=== PATIENT | female | born 1935 | race Caucasian/White ===

== ENCOUNTER 2017-03-23 08:16 | Emergency (ER) | payer OTHER ==
[~2017-03-23] VITALS: Ht 149.9 cm; Wt 54.9 kg
[~2017-03-23 08:16] MED LIST: ACTONEL 150 MG; ALEN10; ALLERTEC PO; ASPI81CH PO; FLONASE ALLERG9.9 ML; LISI5 PO; LOPE2C PO; ROFE25; VITAMIN B PO; [UNRECOGNIZED DRUG - MIXTURE] PO
[2017-03-23 09:50] LABS: BASOPHILS ABSOLUTE AUTO 0.03 K/mm3 (0.00-0.23); BASOPHILS PERCENT AUTO 0 % (0-2); EOSINOPHILS ABSOLUTE AUTO 0.21 K/mm3 (0.00-0.68); EOSINOPHILS PERCENT AUTO 3 % (0-6); Hematocrit 40.2 % (33.0-51.0); Hemoglobin 13.9 g/dL (11.5-16.0); IMMATURE GRAN ABSOLUTE AUTO 0.02 K/mm3 (0.00-0.10); IMMATURE GRAN PERCENT AUTO 0 % (0-1); LYMPHOCYTES ABSOLUTE AUTO 1.14 K/mm3 (0.84-5.20); LYMPHOCYTES PERCENT AUTO 15 % (21-46); MONOCYTES ABSOLUTE AUTO 0.78 K/mm3 (0.16-1.47); MONOCYTES PERCENT AUTO 10 % (4-13); Mean Corpuscular HGB 32.3 pg (26.0-34.0); Mean Corpuscular HGB Conc 34.6 g/dL (31.5-36.5); Mean Corpuscular Volume 93 fL (80-100); Mean Platelet Volume 11.6 fL (9.1-12.4); NEUTROPHILS ABSOLUTE AUTO 5.47 K/mm3 (1.96-9.15); NEUTROPHILS PERCENT AUTO 72 % (41-73); Platelet Count 230 K/mm3 (150-400); RDW Coefficient Variation 12.9 % (11.7-14.2); RDW Standard Deviation 44.7 fL (35.1-46.3); Red Blood Cell Count 4.31 M/mm3 (3.80-5.20); White Blood Cell Count 7.65 K/mm3 (4.00-11.30)
[2017-03-23 10:04] LABS: Alanine Aminotransfer (ALT/SGP 210 U/L (12-78); Albumin, Blood 3.3 g/dL (3.4-5.0); Albumin/Globulin Ratio 0.9 (0.8-1.8); Alk Phos 167 U/L (50-136); Anion Gap 8 mmol/L (6-16); Aspartate Aminotrans (AST/SGOT 104 U/L (12-37); Bilirubin, Total 1.7 mg/dL (0.1-1.0); Blood Urea Nitrogen 10 mg/dL (8-24); Bun/Creatinine Ratio 19.9 (12.0-20.0); CO2, Blood 28 mmol/L (21-32); Calcium, Blood 8.3 mg/dL (8.5-10.1); Chloride, Blood 105 mmol/L (98-108); Globulin, Blood 3.5 g/dL (2.2-4.0); Glomerular Filtration Rate >60 (60-); Glucose, Blood 181 mg/dL (70-99); Potassium, Blood 3.4 mmol/L (3.5-5.5); Sodium, Blood 141 mmol/L (136-145); Total Protein, Blood 6.8 g/dL (6.4-8.2)
[2017-03-23] MEDS ORDERED: CIME400 PO (13:06)
[2017-03-24 07:03] LABS: HCV Non Reactive (NR)
== END 2017-03-23 18:05 | disposition home or self-care (01) ==
LOC: ER 08:16
PROVIDERS: Emergency Medicine
DX: K83.1 Obstruction of bile duct (principal); R74.0 Nonspecific elevation of levels of transaminase and lactic acid dehydrogenase [LDH]; K44.9 Diaphragmatic hernia without obstruction or gangrene; Z88.6 Allergy status to analgesic agent; Z88.8 Allergy status to other drugs, medicaments and biological substances; Z79.899 Other long term (current) drug therapy; Z79.82 Long term (current) use of aspirin
CPT/HCPCS: 36415; 74177; 78226; 80053; 80074; 82272; 83690; 85025; 99284; A9537; Q9967

== ENCOUNTER → 2017-04-10 | Outpatient (CLI) | payer OTHER ==
[~2017-04-10] MED LIST changes: +CIME400 PO
== END | disposition home or self-care (01) ==
LOC: LAB SHORT 22:25 → OLS 22:25 → LAB FUT 03-30 11:00
DX: R19.7 Diarrhea, unspecified (principal); R63.4 Abnormal weight loss
CPT/HCPCS: 83520

== ENCOUNTER → 2017-04-12 | Outpatient (CLI) | payer OTHER ==
[2017-04-13 04:05] LABS: Fecal Collection Time 24 HR
== END ==
LOC: OLS 11:59
PROVIDERS: Internal Medicine
DX: R19.7 Diarrhea, unspecified (principal); R63.4 Abnormal weight loss
CPT/HCPCS: 82710

== ENCOUNTER → 2018-09-07 | Outpatient (CLI) | payer OTHER ==
[~2018-09-07] MED LIST changes: +ASPERCREME76.5 GM TOP; +BASAGLAR K100 UNIT/1 SC; +BIOTIN PO; +RISEDRONATE SO150 MG PO; +SELENIUM200 MC1 PO; +VITAMIN D-32000 UNIT PO
== END | disposition home or self-care (01) ==
LOC: LAB SHORT 10:00 → LAB 10:00
DX: R30.0 Dysuria (principal)
CPT/HCPCS: 87077; 87086; 87186

== ENCOUNTER 2018-12-13 07:48 | Day surgery (SDC) | payer OTHER ==
[~2018-12-13] VITALS: Ht 152.4 cm; Wt 51.0 kg
[~2018-12-13 07:48] MED LIST changes: -BASAGLAR K100 UNIT/1 SC; -BIOTIN PO; -RISEDRONATE SO150 MG PO
[2018-12-13] MEDS ORDERED: BIOTIN PO (08:11)
--- NOTE | 2018-12-13 13:07 | NUR ---
FAMILY W PT NOW, DR GONZALEZ TALKING TO PT/FAMILY ABOUT PLAN OF CARE AT THIS TIME, SEE RHYTHM STRIP RECORD FOR VS. PEDAL PULSES PALPABLE, R GROIN ACCESS SITE STABLE, LUNCH ORDERED
== END 2018-12-13 15:30 | disposition home or self-care (01) ==
LOC: MHTC 07:48
DX: I70.203 Unspecified atherosclerosis of native arteries of extremities, bilateral legs (principal)
CPT/HCPCS: 37225; 37228; 75625; 75716; 75774; 82947; 85347; 99152; 99153; C1714; C1725; C1769; C1884; C1887; C1894; C2623; J1644; J2250; J2405; J3010; J7030; Q9967

== ENCOUNTER 2018-12-27 08:19 | Day surgery (SDC) | payer OTHER ==
[~2018-12-27] VITALS: Ht 175.3 cm; Wt 50.9 kg
[~2018-12-27 08:19] MED LIST changes: +BIOTIN PO
[2018-12-27] MEDS ORDERED: BASAGLAR K100 UNIT/1 SC (11:27)
[2018-12-27] MEDS ORDERED: RISEDRONATE SO150 MG PO (11:28)
--- NOTE | 2018-12-27 13:03 | NUR ---
PT BACK TO RECOVERY ROOM VIA FELARJANINE AFTER PROCEDURE. AWAKE AND ALERT. DENIES PAIN OR DISCOMFORT. LEFT FEMORAL SITE C/D/I, TEGADERM CHG IN PLACE OVER SITE. PT INSTRUCTED TO REMAIN FLAT WITHOUT LIFTING HEAD FOR THE FIRST HOUR POST PROCEDURE.
--- NOTE | 2018-12-27 14:33 | NUR ---
PT REPOSITIONED FOR COMFORT. HOB RAISED 45 DEGREES. LEFT FEMORAL SITE REMAINS STABLE. DRESSING C/D/I NO ACTIVE BLEEDING, OOZING, OR PAIN NOTED. FAMILY PRESENT AT BEDSIDE. VSS.
--- NOTE | 2018-12-27 15:27 | NUR ---
PT AT 90 DEGREES EATING AND DRINKING WITH NO DIFFICULTIES. LEFT GROIN SITE STABLE. DRESSING C/D/I. FAMILY PRESENT TO DISCUSS DISCHARGE INFORMATION.
== END 2018-12-27 16:10 | disposition home or self-care (01) ==
LOC: MHTC 08:19
DX: E11.51 Type 2 diabetes mellitus with diabetic peripheral angiopathy without gangrene (principal); I70.201 Unspecified atherosclerosis of native arteries of extremities, right leg; I74.3 Embolism and thrombosis of arteries of the lower extremities; M19.90 Unspecified osteoarthritis, unspecified site; M54.9 Dorsalgia, unspecified; G89.29 Other chronic pain; Z88.6 Allergy status to analgesic agent; Z88.8 Allergy status to other drugs, medicaments and biological substances; Z79.899 Other long term (current) drug therapy; Z79.82 Long term (current) use of aspirin
CPT/HCPCS: 37224; 37228; 37232; 75716; 75774; 82947; 85347; 99152; 99153; C1725; C1760; C1769; C1887; C1894; C2623; J1644; J2250; J2997; J3010; J7030; J7042; Q9967

== ENCOUNTER 2019-02-25 15:46 | Emergency (ER) | payer OTHER ==
[~2019-02-25] VITALS: Ht 149.9 cm; Wt 50.8 kg
[~2019-02-25 15:46] MED LIST changes: +BASAGLAR K100 UNIT/1 SC; +RISEDRONATE SO150 MG PO
[2019-02-25] MEDS ORDERED: ONDA4ODT SL (18:51)
[2019-02-25] MEDS ORDERED: Roxicodone5 MG PO (18:51)
== END 2019-02-25 20:16 | disposition home or self-care (01) ==
LOC: ER 15:46
DX: S42.201A Unspecified fracture of upper end of right humerus, initial encounter for closed fracture (principal); Z79.899 Other long term (current) drug therapy; X58.XXXA Exposure to other specified factors, initial encounter
CPT/HCPCS: 29105; 64450; 73030; 73200; 96372-59; 99284-25; A9270; A9270-GY; J1170

== ENCOUNTER 2019-07-15 06:44 | Emergency (ER) | payer OTHER ==
[~2019-07-15] VITALS: Ht 152.4 cm; Wt 45.4 kg
[~2019-07-15 06:44] MED LIST changes: +METF500 PO; +ONDA4ODT SL; +Roxicodone5 MG PO; +VITAMIN D32000 UNI3 PO
[2019-07-15 07:31] LABS: BASOPHILS ABSOLUTE AUTO 0.05 K/mm3 (0.00-0.23); BASOPHILS PERCENT AUTO 1 % (0-2); EOSINOPHILS ABSOLUTE AUTO 0.23 K/mm3 (0.00-0.68); EOSINOPHILS PERCENT AUTO 3 % (0-6); Hematocrit 39.9 % (33.0-51.0); Hemoglobin 13.1 g/dL (11.5-16.0); IMMATURE GRAN ABSOLUTE AUTO 0.02 K/mm3 (0.00-0.10); IMMATURE GRAN PERCENT AUTO 0 % (0-1); LYMPHOCYTES ABSOLUTE AUTO 1.64 K/mm3 (0.84-5.20); LYMPHOCYTES PERCENT AUTO 19 % (21-46); MONOCYTES ABSOLUTE AUTO 0.69 K/mm3 (0.16-1.47); MONOCYTES PERCENT AUTO 8 % (4-13); Mean Corpuscular HGB 30.5 pg (26.0-34.0); Mean Corpuscular HGB Conc 32.8 g/dL (31.5-36.5); Mean Corpuscular Volume 93 fL (80-100); NEUTROPHILS ABSOLUTE AUTO 6.13 K/mm3 (1.96-9.15); NEUTROPHILS PERCENT AUTO 70 % (41-73); RDW Coefficient Variation 14.5 % (11.7-14.2); RDW Standard Deviation 49.5 fL (35.1-46.3); White Blood Cell Count 8.76 K/mm3 (4.00-11.30)
[2019-07-15 07:47] LABS: Mean Platelet Volume 11.2 fL (9.1-12.4); Platelet Count 186 K/mm3 (150-400)
[2019-07-15 07:51] LABS: Alanine Aminotransfer (ALT/SGP 22 U/L (12-78); Albumin, Blood 3.6 g/dL (3.4-5.0); Alk Phos 70 U/L (50-136); Anion Gap 6 mmol/L (6-16); Aspartate Aminotrans (AST/SGOT 23 U/L (12-37); Bilirubin, Total 0.5 mg/dL (0.1-1.0); Blood Urea Nitrogen 11 mg/dL (8-24); Bun/Creatinine Ratio 24.3 (12.0-20.0); CO2, Blood 27 mmol/L (21-32); Calcium, Blood 8.6 mg/dL (8.5-10.1); Chloride, Blood 109 mmol/L (98-108); Creatinine, Blood 0.45 mg/dL (0.40-1.00); Globulin, Blood 3.6 g/dL (2.2-4.0); Glomerular Filtration Rate >60 (60-); Glucose, Blood 104 mg/dL (70-99); Potassium, Blood 3.7 mmol/L (3.5-5.5); Sodium, Blood 142 mmol/L (136-145); Total Protein, Blood 7.2 g/dL (6.4-8.2)
[2019-07-15 08:48] LABS: Source, Urine Voided
[2019-07-15 08:52] LABS: Bilirubin, Urine Neg (Neg); Blood, Urine 5+ (Neg); Glucose Qualitative, Urine Neg (Neg); Ketones, Urine Neg (Neg); Leukocyte Esterase, Urine 2+ (Neg); Nitrite, Urine Pos (Neg); Protein, Urine 3+ (Neg); Specific Gravity, Urine 1.015 (1.003-1.022); Urobilinogen, Urine NORM (Normal)
[2019-07-15 08:59] LABS: Color, Urine Brown (P-Yellow)
[2019-07-15 09:00] LABS: Appearance, Urine Cloudy (Clear)
[2019-07-15 09:04] LABS: Red Blood Cells, Urine TNTC /hpf (0-2); Squamous Epithelial Cells Few /hpf (Few)
[2019-07-15 09:05] LABS: Amorphous Mod (0-Heavy); Bacteria Many /hpf; Transitional Epithelial Cells Few /hpf (0-Rare)
[2019-07-15] MEDS ORDERED: CEPH500 PO (10:02)
[2019-07-15] MEDS ORDERED: Macrobid 100 M100 MG PO (10:02)
== END 2019-07-15 10:18 | disposition home or self-care (01) ==
LOC: ER 06:44
PROVIDERS: Emergency Medicine
DX: N39.0 Urinary tract infection, site not specified (principal); Z88.6 Allergy status to analgesic agent; Z88.8 Allergy status to other drugs, medicaments and biological substances; Z79.899 Other long term (current) drug therapy; Z79.4 Long term (current) use of insulin; Z79.82 Long term (current) use of aspirin
CPT/HCPCS: 36415; 80053; 81001; 85025; 87077; 87086; 87186; 96361; 96365; 99283-25; J0696; J7030

== ENCOUNTER → 2019-07-24 | Outpatient (CLI) | payer OTHER ==
[~2019-07-24] MED LIST changes: +CEPH500 PO; +FLUT.05NI; +Macrobid 100 M100 MG PO
== END | disposition home or self-care (01) ==
LOC: LAB SHORT 12:20 → LAB 12:20
DX: N39.0 Urinary tract infection, site not specified (principal)
CPT/HCPCS: 87086

== ENCOUNTER 2019-07-27 05:48 | Day surgery (SDC) | payer OTHER ==
[~2019-07-27 05:48] MED LIST changes: -FLUT.05NI
[2019-07-27] MEDS ORDERED: FLUT.05NI (06:30)
--- NOTE | 2019-07-27 08:03 | NUR ---
Pt received from Ashlie Rosa RN Pt alert cooperative, right radial site wnl. Loosen straps on hand board. Pt taking po fluid with 450 ml NS JOVANNY. Pt with call light. VSS.
--- NOTE | 2019-07-27 09:40 | NUR ---
2 cc air removed from tr-band at 0940, site with bruising, no hematoma noted. reveived discharge information with patient. Pt appears to understand education as well as appropriate questions on follow up.
--- NOTE | 2019-07-27 09:45 | NUR ---
3 cc air removed from tr-band.
--- NOTE | 2019-07-27 10:00 | NUR ---
Pt with all air out of tr-band band is still on. At that time patient had to use brp. Voided when her site began to bleed. 8 cc air placed in tr-band then 2 ccc removed. Pt has no hematoma or bleeding at this time. she is resting in chair. Continue to observe.
--- NOTE | 2019-07-27 10:23 | NUR ---
2 cc inflated to tr-band slight tenderness.
--- NOTE | 2019-07-27 11:01 | NUR ---
2 CC REMOVED FROM TR-BAND. Pt stable.
--- NOTE | 2019-07-27 11:09 | NUR ---
2 cc air removed site with no hematoma or bleeding. Pt voided on commode for 2 x.
--- NOTE | 2019-07-27 11:33 | NUR ---
Pt with right rad site tr-band removed, no bleeding or hematoma, bruised area. Pt with good pulse. Site cleansed pat dry cloth dot applied, then hand board. Pt iv removed cath intact. Able to walk with assistance. 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
--- NOTE | 2019-07-27 11:58 | NUR ---
Reviewed discharge with son Quan. We looked at the site and reviewed where to hold pressure in the event of a bleed. Pt and son verbalized understanding.
--- NOTE | 2019-07-27 12:00 | NUR ---
Pt home in private auto, taken to car via wheel chair, munguia and personal belongings returned.
== END 2019-07-27 12:00 | disposition home or self-care (01) ==
LOC: MHTC 05:48
PROC: B2111ZZ Fluoroscopy of Multiple Coronary Arteries using Low Osmolar Contrast (ICD-10-PCS; principal; 2019-07-27)
PROC: 4A023N7 Measurement of Cardiac Sampling and Pressure, Left Heart, Percutaneous Approach (ICD-10-PCS; principal; 2019-07-27)
DX: I35.0 Nonrheumatic aortic (valve) stenosis (principal); E78.5 Hyperlipidemia, unspecified; I27.20 Pulmonary hypertension, unspecified; E11.51 Type 2 diabetes mellitus with diabetic peripheral angiopathy without gangrene; Z79.82 Long term (current) use of aspirin; Z79.899 Other long term (current) drug therapy; Z79.84 Long term (current) use of oral hypoglycemic drugs; Z88.8 Allergy status to other drugs, medicaments and biological substances; Z88.6 Allergy status to analgesic agent
CPT/HCPCS: 82947; 93454; 99152; C1769; C1894; J1644; J2250; J3010; J7030; Q9967

== ENCOUNTER → 2020-04-30 | Outpatient (CLI) | payer OTHER ==
[~2020-04-30] MED LIST changes: +FLUT.05NI
== END | disposition home or self-care (01) ==
LOC: LAB 15:28 → LAB SHORT 15:28
DX: J47.9 Bronchiectasis, uncomplicated (principal)
CPT/HCPCS: 87015; 87116; 87206

== ENCOUNTER → 2020-05-06 | Outpatient (CLI) | payer OTHER | END | disposition home or self-care (01) | LOC: LAB SHORT 12:03 → PLD 12:03 | DX: J47.9 Bronchiectasis, uncomplicated (principal) | CPT/HCPCS: 87015; 87116; 87206 ==

== ENCOUNTER → 2020-05-09 | Outpatient (CLI) | payer OTHER | END | disposition home or self-care (01) | LOC: LAB SHORT 09:00 → LAB 09:00 | DX: J47.9 Bronchiectasis, uncomplicated (principal) | CPT/HCPCS: 87015; 87116; 87206 ==

== ENCOUNTER → 2020-08-26 | Outpatient (CLI) | payer OTHER | END | disposition home or self-care (01) | LOC: LAB SHORT 12:30 | DX: R30.9 Painful micturition, unspecified (principal) | CPT/HCPCS: 87086 ==

== ENCOUNTER → 2021-09-14 | Outpatient (CLI) | payer OTHER ==
[2021-09-16 10:21] LABS: Stool Occult Bld Immuno 1 Positive (NEGATIVE)
== END | disposition home or self-care (01) ==
LOC: LAB 16:00 → LAB SHORT 16:00
PROVIDERS: Hospitalist
DX: Z12.11 Encounter for screening for malignant neoplasm of colon (principal)
CPT/HCPCS: 82274

== ENCOUNTER → 2021-09-29 | Outpatient (CLI) | payer OTHER | LOC: LAB 08:11 → LAB SHORT 08:11 | DX: J47.9 Bronchiectasis, uncomplicated (principal) | CPT/HCPCS: 87070; 87205 ==

== ENCOUNTER → 2021-11-18 | Outpatient (CLI) | payer OTHER | END | disposition home or self-care (01) | LOC: LAB 14:33 → LAB SHORT 14:33 | DX: M79.604 Pain in right leg (principal) | CPT/HCPCS: 85379 ==

== ENCOUNTER → 2022-02-09 | Outpatient (CLI) | payer OTHER | END | disposition home or self-care (01) | LOC: LAB SHORT 11:01 | DX: L57.0 Actinic keratosis (principal) | CPT/HCPCS: 88305 ==

== ENCOUNTER → 2022-06-10 | Outpatient (CLI) | payer OTHER | END | disposition home or self-care (01) | LOC: LAB SHORT 10:20 → LAB 10:20 | DX: R30.0 Dysuria (principal) | CPT/HCPCS: 87077; 87086; 87186 ==

== ENCOUNTER → 2022-12-01 | Outpatient (CLI) | payer OTHER | LOC: LAB SHORT 08:00 → LAB 08:00 | DX: J47.9 Bronchiectasis, uncomplicated (principal) | CPT/HCPCS: 87070; 87205 ==

== ENCOUNTER → 2023-02-02 | Outpatient (CLI) | payer OTHER | END | disposition home or self-care (01) | LOC: LAB SHORT 10:45 → LAB 10:45 | DX: N39.0 Urinary tract infection, site not specified (principal); R30.0 Dysuria | CPT/HCPCS: 87086 ==

== ENCOUNTER → 2023-06-16 | Outpatient (CLI) | payer OTHER | END | disposition home or self-care (01) | LOC: LAB 07:57 → LAB SHORT 07:57 | DX: L82.0 Inflamed seborrheic keratosis (principal) | CPT/HCPCS: 88305 ==

== ENCOUNTER 2024-03-09 22:41 | Emergency (ER) | payer OTHER ==
[~2024-03-09] VITALS: Ht 149.9 cm; Wt 49.0 kg
[2024-03-09 23:13] LABS: BASOPHILS ABSOLUTE AUTO 0.05 K/mm3 (0.00-0.23); BASOPHILS PERCENT AUTO 0 % (0-2); EOSINOPHILS PERCENT AUTO 0 % (0-6); Hematocrit 34.8 % (33.0-51.0); Hemoglobin 12.1 g/dL (11.5-16.0); IMMATURE GRAN ABSOLUTE AUTO 0.05 K/mm3 (0.00-0.10); IMMATURE GRAN PERCENT AUTO 0 % (0-1); LYMPHOCYTES ABSOLUTE AUTO 0.42 K/mm3 (0.84-5.20); LYMPHOCYTES PERCENT AUTO 3 % (21-46); MONOCYTES PERCENT AUTO 10 % (4-13); Mean Corpuscular HGB 32.4 pg (26.0-34.0); Mean Corpuscular HGB Conc 34.8 g/dL (31.5-36.5); Mean Corpuscular Volume 93 fL (80-100); Mean Platelet Volume 11.2 fL (9.1-12.4); NEUTROPHILS ABSOLUTE AUTO 10.87 K/mm3 (1.96-9.15); NEUTROPHILS PERCENT AUTO 86 % (41-73); Platelet Count 228 K/mm3 (150-400); RDW Coefficient Variation 13.6 % (11.7-14.2); RDW Standard Deviation 46.5 fL (35.1-46.3); Red Blood Cell Count 3.74 M/mm3 (3.80-5.20); White Blood Cell Count 12.59 K/mm3 (4.00-11.30)
[2024-03-09 23:32] LABS: Albumin/Globulin Ratio 0.8 (0.8-1.8); Bilirubin, Total 0.5 mg/dL (0.1-1.0); Bun/Creatinine Ratio 20.8 (12.0-20.0); Calcium, Blood 8.2 mg/dL (8.5-10.1); Creatinine, Blood 0.58 mg/dL (0.40-1.00); Globulin, Blood 3.8 g/dL (2.2-4.0); Total Protein, Blood 6.8 g/dL (6.4-8.2)
[2024-03-09] MEDS ORDERED: NS 1,000 ML IV SCH (23:45)
[2024-03-10 00:35] LABS: Source, Urine Straight Cath
[2024-03-10 00:52] LABS: Appearance, Urine Clear (Clear); Bilirubin, Urine Neg (Neg); Blood, Urine 4+ (Neg); Color, Urine Yellow (P-Yellow); Glucose Qualitative, Urine Neg (Neg); Ketones, Urine 3+ (Neg); Leukocyte Esterase, Urine Neg (Neg); Nitrite, Urine Neg (Neg); Protein, Urine 2+ (Neg); Urobilinogen, Urine NORM (Normal)
[2024-03-10 01:06] LABS: CORONAVIRUS COVID-19 AG Negative (NEGATIVE); INFLUENZA A AG Positive (NEGATIVE); INFLUENZA B AG Negative (NEGATIVE)
[2024-03-10 01:10] LABS: Bacteria Mod /hpf; Squamous Epithelial Cells Few /hpf (Few); White Blood Cells, Urine 0-2 /hpf (0-5)
[2024-03-10 01:30] VITALS: BP 115/67
== END 2024-03-10 01:50 | disposition home or self-care (01) ==
LOC: ER 22:41
PROVIDERS: Emergency Medicine
DX: J10.1 Influenza due to other identified influenza virus with other respiratory manifestations (principal); Z88.6 Allergy status to analgesic agent; Z88.5 Allergy status to narcotic agent; Z88.8 Allergy status to other drugs, medicaments and biological substances; Z79.51 Long term (current) use of inhaled steroids; Z79.899 Other long term (current) drug therapy
CPT/HCPCS: 71045; 80053; 81001; 83605; 85025; 87428-QW; 93005; 93010; 99284-25; J7030; P9612